=== PATIENT | female | born 1955 | race Caucasian/White ===

== ENCOUNTER 2019-07-25 11:13 | Outpatient (CLI) | payer BC, SELFPAY ==
--- NOTE | ~2019-07-25 | MMUS_ITS ---
EXAMINATION: MM diagnostic mammo unilat LT, US breast LT limited HISTORY: New 6 mm mass reported in anterior lower outer quadrant on 07/04/2019 screening mammogram exa mination TECHNIQUE: Additional 3-D tomosynthesis images of the left breast were performed and synthetic 2-D im ages were generated. CAD analysis was submitted and interpreted. High resolution lower outer and lowe r inner and subareolar left breast ultrasound was performed. COMPARISON: 07/04/2019 bilateral digital screening mammogram FINDINGS: MAMMOGRAPHIC FINDINGS: There is an approximately 3.8 x 7 mm circumscribed opacity in the lower mid left breast (craniocaudal Tomosynthesis image 14/54). Additional smaller masses cannot be excluded. Ultrasound examination was performed. ULTRASOUND: 3:00 4 cm from nipple: Parallel circumscribed oval sonolucency measuring 5.3 x 1.2 x 4.7 mm, consiste nt with a small cyst 5:00 1 cm from nipple: Parallel circumscribed sonolucency measuring 3.1 x 1.9 x 6.1 mm, with through transmission posterior enhancement, no internal vascularity, compatible with simple cyst Subareolar area at 6:00: 2.8 x 4.5 x 4.4 mm sonolucency consistent with cyst 8:00 1 cm from nipple: 1.2 x 2.6 mm cyst 7:00 subareolar area: Up to 8mm sonolucency which may be a dilated duct No suspicious solid lesion or shadowing is detected. IMPRESSION: 1. No mammographic evidence of malignancy 2. Routine annual mammographic screening is recommended. BI-RADS Category 2: Benign finding(s). Reviewed, dictated and finalized at location A. NAUTICAL RESEARCH ENGINEER IMPRESSION: 1. No mammographic evidence of malignancy 2. Routine annual mammographic screening is recommended. BI-RADS Category 2: Benign finding(s).
== END 2019-07-25 11:14 | disposition home or self-care (01) ==
PROVIDERS: PCP Family Medicine; Visit Provider Family Medicine
DX: N63.20 Unspecified lump in the left breast, unspecified quadrant (principal); R92.8 Other abnormal and inconclusive findings on diagnostic imaging of breast
CPT/HCPCS: 76642; 77065

== ENCOUNTER 2020-07-29 07:57 | Outpatient (CLI) | payer BC, SELFPAY ==
--- NOTE | ~2020-07-29 | MM_ITS ---
EXAMINATION: MM screening [facility] BI w kishor HISTORY: Screening TECHNIQUE: Craniocaudal and mediolateral oblique 3-D tomosynthesis images were obtained and synthetic 2-D images were generated. CAD analysis was submitted and interpreted. COMPARISON: Comparison to multiple prior studies sequentially, with oldest reviewed study dated 01/02. BREAST PARENCHYMAL COMPOSITION: The breasts are heterogeneously dense, which may obscure small masses . FINDINGS: There is no evidence of suspicious mass, calcification, or architectural distortion to sugg est malignancy in either breast. There has been no suspicious interval change. IMPRESSION: 1. No mammographic evidence of malignancy. 2. Recommend routine screening mammography in one year. BI-RADS Category 1: Negative Reviewed, dictated and finalized at location A. IT ADMINISTRATION OFFICER
== END 2020-07-29 07:58 | disposition home or self-care (01) ==
LOC: ANHIMG 08:01
PROVIDERS: PCP Physician Assistant; Visit Provider Physician Assistant
DX: Z12.31 Encounter for screening mammogram for malignant neoplasm of breast (principal)
CPT/HCPCS: 77063; 77067

== ENCOUNTER → 2020-08-26 02:43 | Outpatient (CLI) | payer BC, SELFPAY ==
[2020-08-26 21:05] LABS: SARS-CoV-2 RNA PCR Negative
== END ==
PROVIDERS: PCP Physician Assistant; Visit Provider Internal Medicine Gastroenterology
DX: Z01.812 Encounter for preprocedural laboratory examination (principal); Z20.822 Contact with and (suspected) exposure to COVID-19
CPT/HCPCS: C9803; U0003; U0005

== ENCOUNTER 2020-08-29 00:45 | Day surgery (SDC) | payer BC, SELFPAY ==
[2020-08-29 07:44] VITALS: BP 126/67; PULSE 73; RESP 18; TEMP 36.7; O2SAT 100; BMI 31.0
--- NOTE | 2020-08-29 08:05 | P.PNAN_ITS ---
Anes - Initial Pre Proc Eval Procedure: Operation Date: 08/29/20 09:00 Proposed Procedures p Screening Colonoscopy - Cezar Sandoval DO Date/Time: 08/29/20 08:05 Surgeon: Cezar Sandoval DO Pre Op Diagnosis: Hx of Colon Polyps Patient Data Age: 65 Gender: F Height: 5 ft 5 in Weight: 84.6 kg Last Vital Signs Temp 98.1 F 08/29/20 07:44 Pulse 73 08/29/20 07:44 Resp 18 08/29/20 07:44 BP 126/67 08/29/20 07:44 Pulse Ox 100 08/29/20 07:44 Allergies Allergy/AdvReac Type Severity Reaction Status Date / Time No Known Allergies Allergy Unknown Verified 08/29/20 07:42 Home Medications Medication Instructions Recorded Confirmed Type diclofenac sodium 75 mg 75 mg PO BID 01/25/20 08/29/20 History tablet,delayed release atorvastatin 10 mg tablet 10 mg PO DAILY #90 tablet 07/28/20 08/29/20 Rx Patient hx anesthesia problems: none Family hx anesthesia problems: none PMFSH Past Medical History Medical History Chronic rhinitis Colon polyp Hypercholesteremia Hyperlipidemia Hyperlipidemia LDL goal <100 Intermittent low back pain JOHN (obstructive sleep apnea) JOHN on CPAP Sleep apnea Surgical History Surgical History History of colonoscopy HAS SEVERE NAUSEA WITH ANESTHESIA. Needs scopolamine patch before any anesthesia. Family History Family History Mother Hypertension Cerebrovascular accident Grandparent Hypertension Cerebrovascular accident Sibling Family history of cardiovascular disease Carcinoma of colon Father Carcinoma of colon Family history of lung cancer Social History Social History Smoking packs per day: 1 Smoking cigarettes per day: 20.0 Years smoked: 10 Smoking pack-years: 10.00 Smoking status: Former smoker Tobacco type: cigarettes Second hand tobacco smoke exposure: No Smoking end date: 06/14/85 Alcohol intake: never Drinks per week: 2 Substance use: never Substance use type: does not use Living arrangements: with family Gender identity (if verbalized by the patient): Female Spiritual care concerns: No Agree to blood products: Yes Aaliyahs - Evflakito Final PreProcedure Day of Procedure 08/29/20 08:05 Patient weight: obese Heart: regular rate and rhythm Lungs: clear to auscultation Airway: Mallampati scale class II Neurological: alert and oriented Last oral intake: >/= 8 hours ASA classification: III Emergent: no Anesthetic plan: proceed Anesthesia type and monitoring: general GIVS and standard monitoring Informed Consent: The patient's anesthetic plan and its attendant risks and bene fits were discussed with the patient/family/POA. Questions were solicited and answers provided to the satisfaction of the patient/family/POA.
[2020-08-29] MEDS: LACTATED RINGERS 1,000 ML 150 ML IV CONT ×2 (08:23→09:24)
[2020-08-29] MEDS: diphenhydrAMINE HCl INJ 50 MG/ML VIAL 12.5 MG IV PUSH (08:25)
[2020-08-29] MEDS: ONDANSETRON INJ 4 MG/2 ML VIAL IV PUSH (08:26)
--- NOTE | 2020-08-29 09:23 | WPDGICN ---
GI Consult Note Consult date/time: 08/29/20 09:23 HPI: Reason for visit is colonoscopy. This very pleasant lady's here at the request of the primary physician. The patient was examined. Impression: Screening and surveillance colonoscopy. The patient history adenomatous colon polyps and a strong family history of colon cancer. HLD. JOHN. recommendation: Colonoscopy. History: This very pleasant lady is negative GI review systems. She has a strong family history of colon cancer. She has a history adenomatous colon polyps. She is here for screening and surveillance. Physical examination: General: very pleasant patient in no acute distress. HEENT: Head was normocephalic sclerae is clear mouth without masses neck was supple. Heart: Rate rhythm regular without S3 or S4. Lungs: CTA. Abdomen: Soft with no guarding or rigidity. Bowel sounds were active. Neurologic: Cranial nerves 2 through 12 intact. No focal defects. No clonus. Musculoskeletal system: Revealed no joint tenderness or swelling no muscle atrophy. Extremities: Reveal no significant edema. Skin: Warm and dry with normal turgor. Mental status: intact. Patient is alert and oriented. Review of Systems Review of Systems: All systems reviewed & are unremarkable except as noted in HPI and below PMFSH Past Medical History Medical History Chronic rhinitis Colon polyp Hypercholesteremia Hyperlipidemia Hyperlipidemia LDL goal <100 Intermittent low back pain JOHN (obstructive sleep apnea) JOHN on CPAP Sleep apnea Surgical History Surgical History History of colonoscopy HAS SEVERE NAUSEA WITH ANESTHESIA. Needs scopolamine patch before any anesthesia. Family History Family History Mother Hypertension Cerebrovascular accident Grandparent Hypertension Cerebrovascular accident Sibling Family history of cardiovascular disease Carcinoma of colon Father Carcinoma of colon Family history of lung cancer Social History Social History Smoking packs per day: 1 Smoking cigarettes per day: 20.0 Years smoked: 10 Smoking pack-years: 10.00 Smoking status: Former smoker Tobacco type: cigarettes Second hand tobacco smoke exposure: No Smoking end date: 06/14/85 Alcohol intake: never Drinks per week: 2 Substance use: never Substance use type: does not use Living arrangements: with family Gender identity (if verbalized by the patient): Female Spiritual care concerns: No Agree to blood products: Yes Meds Home Medications and Allergies Home Medications Medication Instructions Recorded Confirmed Type diclofenac sodium 75 mg 75 mg PO BID 01/25/20 08/29/20 History tablet,delayed release atorvastatin 10 mg tablet 10 mg PO DAILY #90 tablet 07/28/20 08/29/20 Rx Allergies Allergy/AdvReac Type Severity Reaction Status Date / Time No Known Allergies Allergy Unknown Verified 08/29/20 07:42 Vital Signs Vital Signs - 24 hr 08/29/20 07:44 Temperature 36.7 C Pulse Rate 73 Respiratory Rate 18 Blood Pressure 126/67 Pulse Oximetry 100
[2020-08-29 09:52] VITALS: BP 98/47; PULSE 94; RESP 21; O2SAT 99
[2020-08-29 10:02] VITALS: BP 114/47; PULSE 69; RESP 22; O2SAT 100
[2020-08-29 10:12] VITALS: BP 109/43; PULSE 63; RESP 17; O2SAT 99
== END 2020-08-29 10:26 | disposition home or self-care (01) ==
PROVIDERS: PCP Physician Assistant; Visit Provider Internal Medicine Gastroenterology
PROC: 0DJD8ZZ Inspection of Lower Intestinal Tract, Via Natural or Artificial Opening Endoscopic (ICD-10-PCS; CPT 45378; principal; 2020-08-29 09:00)
DX: Z12.11 Encounter for screening for malignant neoplasm of colon (principal); D12.2 Benign neoplasm of ascending colon; K63.5 Polyp of colon; K62.1 Rectal polyp; K57.30 Diverticulosis of large intestine without perforation or abscess without bleeding; E78.5 Hyperlipidemia, unspecified; G47.33 Obstructive sleep apnea (adult) (pediatric); Z87.891 Personal history of nicotine dependence; E66.9 Obesity, unspecified; Z68.31 Body mass index [BMI] 31.0-31.9, adult
CPT/HCPCS: 45380; 45385; 88305; J1200; J2405; J7120